=== PATIENT | female | born 1990 | race African-American/Black ===

== ENCOUNTER 2017-03-16 17:12 | Observation (INO) | payer MEDICAID ==
[~2017-03-16] VITALS: Ht 160 cm; Wt 63.5 kg
[2017-03-16] MEDS ORDERED: ONDANSETRON HCL 4 MG/2 ML VIAL IV ONE ×2 (18:15→22:15)
[2017-03-16 18:53] LABS: Basophils # (auto) 0.1 uL; Basophils % (auto) 0.8 % (0.0-2.0); Eosinophils # (auto) 0 uL; Eosinophils % (auto) 0.4 % (0.0-7.0); Hematocrit 36.2 % (36.0-46.0); Hemoglobin 11.5 g/dL (12.2-16.2); Lymphocytes # (auto) 2.2 uL; Lymphocytes % (auto) 20.1 % (10.0-50.0); Mean Corpuscular Hemoglobin 27.4 pg (28.0-32.0); Mean Corpuscular Hgb Conc. 31.8 g/dL (32.0-36.0); Mean Corpuscular Volume 85.9 fL (80.0-100.0); Mean Platelet Volume 9.8 fL (6.9-10.8); Monocytes # (auto) 0.7 uL; Monocytes % (auto) 6.9 % (0.0-12.0); Neutrophils # (auto) 7.7 uL; Neutrophils % (auto) 71.8 % (37.0-80.0); Nucleated Red Blood Cells % 0.1 %; Platelet Count (auto) 182 10^3/uL (140-450); Red Cell Distribution Width 14.7 % (11.8-14.3); White Blood Cell 10.8 10^3/uL (4.4-10.8)
[2017-03-16 19:06] LABS: Albumin 3.6 g/dL (3.4-5.0); Alkaline Phosphatase 66 U/L (45-117); Anion Gap 11 (5-15); Aspartate Aminotransferase 45 U/L (15-37); BUN/Creatinine Ratio 14.9; Bilirubin, Total 0.2 mg/dL (0.2-1.0); Blood Urea Nitrogen 11 mg/dL (7-18); Carbon Dioxide 23 mmol/L (21-32); Chloride 110 mmol/L (98-107); GFR African American 120 mL/min; GFR Non-African American 99 mL/min; Glucose 116 mg/dL (74-106); Sodium 144 mmol/L (136-145); Total Protein 7.1 g/dL (6.4-8.2)
[2017-03-16 19:16] LABS: Acetaminophen < 2.0 ug/mL (10-30)
[2017-03-16] MEDS ORDERED: SODIUM CHLORIDE 0.9% 1,000 ML IVB ONE (19:19)
[2017-03-16 19:27] LABS: Salicylate < 1.7 mg/dL (2.8-20.0)
[2017-03-16 19:30] LABS: Potassium 2.8 mmol/L (3.5-5.1)
[2017-03-16] MEDS ORDERED: POTASSIUM CHL 20MEQ/100ML 100 ML IV SCH (19:45)
[2017-03-16 21:18] VITALS: BP 103/64
[2017-03-16] MEDS ORDERED: POTASSIUM CHL 20 Meq TABLET PO ONE ×2 (21:45→22:15)
== END 2017-03-16 22:25 | disposition left against medical advice (07) | DRG 425 ==
LOC: EDBD 17:12 → ER 17:15 → OVERFLOW 19:20 → ER 22:25
PROVIDERS: ADMIT Family Medicine; ATTEND Family Medicine
DX: E87.6 Hypokalemia (principal); R11.0 Nausea; Z82.49 Family history of ischemic heart disease and other diseases of the circulatory system; Z87.891 Personal history of nicotine dependence; R74.8 Abnormal levels of other serum enzymes
CPT/HCPCS: 36415; 71010; 80053; 80320; 80329; 82550; 85025; 93005; 96361; 96374; 96376; 99285; G0378; J2405; J3480